=== PATIENT | female | born 1990 ===

== ENCOUNTER 2017-05-07 09:59 | Emergency (ER) | payer OTHER ==
[2017-05-07] MEDS ORDERED: Naproxen 500 MG TAB PO STA (10:37)
[2017-05-07 10:49] VITALS: BP 127/80; PULSE 104; RESP 19; TEMP 98.1; O2SAT 99
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
[2017-05-07] MEDS ORDERED: Naproxen 500 MG TAB PO ONE (11:03)
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
== END 2017-05-07 12:40 | disposition home or self-care (01) ==
LOC: H.ER 09:59
DX: S39.012A Strain of muscle, fascia and tendon of lower back, initial encounter (principal); M79.641 Pain in right hand; V43.62XA Car passenger injured in collision with other type car in traffic accident, initial encounter; Y92.410 Unspecified street and highway as the place of occurrence of the external cause